=== PATIENT | female | born 1965 | race Caucasian/White ===

== ENCOUNTER 2018-10-09 13:28 | Inpatient (IN) | payer MEDICAID ==
[~2018-10-09] VITALS: Ht 162.6 cm; Wt 111.6 kg
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
[2018-10-09 14:10] LABS: BASOPHIL % 0.9 % (0-2); PLATELET COUNT 196 x10^3mcL (130-400); RED CELL DISTRIBUTION WIDTH 14.4 % (11.5-14.5)
[2018-10-09 14:26] LABS: CALCIUM 8.7 mg/dL (8.5-10.1); CARBON DIOXIDE 23.9 mmol/L (21-32); CHLORIDE SERUM 107 mmol/L (98-107); CREATININE SERUM 0.7 mg/dL (0.6-1.0); GFR1 > 60 mL/min; GLUCOSE SERUM 99 mg/dL (74-106); POTASSIUM SERUM 4.2 mmol/L (3.5-5.1); SODIUM SERUM 140 mmol/L (136-145)
--- NOTE | 2018-10-09 14:30 | NUR ---
PT SITTING UP IN BED WATCHING TV. NO SIGNS OF DISTRESS AT THIS TIME.
[2018-10-09 14:31] LABS: ALKALINE PHOSPHATASE 88 U/L (46-116); ALT/SGPT 24 U/L (14-59); AST/SGOT 9 U/L (15-37); BILIRUBIN TOTAL 0.25 mg/dL (0.20-1.00)
[2018-10-09 14:35] LABS: ALBUMIN 3.2 g/dL (3.4-5.0)
[2018-10-09 14:36] LABS: AMPHETAMINE QUAL UR NONE DETECTED (See below)
--- NOTE | 2018-10-09 15:30 | NUR ---
PT LYING IN BED WITH EYES CLOSED WITH NO SIGNS OF DISTRESS.
--- NOTE | 2018-10-09 16:30 | NUR ---
PT LYING IN BE WATCHING TV WITH NO SIGNS OF DISTRESS AT THIS TIME.
--- NOTE | 2018-10-09 17:34 | NUR ---
PT SITTING UP ON EDGE OF BED EATING DINNER. NO SIGNS OF DISTRESS AT THIS TIME.
--- NOTE | 2018-10-09 19:30 | NUR ---
PT RESTING IN BED AFTER USING RESTROOM.
--- NOTE | 2018-10-09 19:30 | NUR ---
PT SITTING UP ON EDGE OF BED TO WATCH TV. NO SIGNS OF DISTRESS.
--- NOTE | 2018-10-09 20:29 | NUR ---
PT SITTING UP IN BED WATCHING TV AND EATING SNACK.
--- NOTE | 2018-10-09 21:09 | NUR ---
Notified Loree JONES , there are no vacancy at any of the designated facilities , will continue to make calls for placement.
--- NOTE | 2018-10-09 21:25 | NUR ---
PT RESTING IN BED ON HER BACK WITH EYES CLOSED WITH NO SIGNS OF DISTRESS AT THIS TIME.
--- NOTE | 2018-10-09 22:49 | NUR ---
PATIENT TRANSFERED TO ICU BED 5.
--- NOTE | 2018-10-09 22:52 | NUR ---
PT REPORT RECEIEVED FROM KAREN GALO. QUESTIONS AND CONCERNS ADDRESSED. PT RESTING IN BED AT THIS TIME, CALM AND COOPERATIVE. WILL MONITOR CLOSELY.
--- NOTE | 2018-10-09 23:36 | NUR ---
PATIENT SLEEPING IN BED AT THIS TIME, NO S/S OF DISTRESS NOTED. WILL MONITOR CLOSELY.
--- NOTE | 2018-10-10 00:44 | NUR ---
PT ASLEEP AT THIS TIME. WILL MONITOR CLOSELY.
--- NOTE | 2018-10-10 02:03 | NUR ---
CRACKERS, AND PUDDING GIVEN AT THIS TIME. PT IS CALM AND COOPERATIVE.
--- NOTE | 2018-10-10 03:00 | NUR ---
ASLEEP AT THIS TIME NO S/S OF DISTRESS NOTED.
--- NOTE | 2018-10-10 04:22 | NUR ---
PATIENT IS SLEEPING IN BED AT THIS TIME. NO S/S OF DISTRESS.
--- NOTE | 2018-10-10 05:40 | NUR ---
PT GIVEN CHOCOLATE PUDDING, PT IS CALM AND COOPERATIVE AT THIS TIME.
--- NOTE | 2018-10-10 07:09 | NUR ---
RECIEVED REPORT FROM [facility]. I WILL RESUME CARE OF PATIENT.
--- NOTE | 2018-10-10 08:07 | NUR ---
PT AT 100% FOOD TRAY, 120ML. OFFERED NEW GOWN, SOCKS, CHANGED BEDDING, AND GAVE TOILETTRY ITEMS FOR PATIENT TO USE. PT IN DISTRESS, AMBULATED WITH A STEADY GAIT GETTING AROUND HER ROOM, AAOX4. NO SI A THIS TIME. WILL CONT TO MONITOR.
--- NOTE | 2018-10-10 08:07 | NUR ---
PT AT 100% FOOD TRAY, 120ML. OFFERED NEW GOWN, SOCKS, CHANGED BEDDING, AND GAVE TOILETTRY ITEMS FOR PATIENT TO USE. PT IN NO DISTRESS, AMBULATED WITH A STEADY GAIT GETTING AROUND HER ROOM, AAOX4. NO SI A THIS TIME. WILL CONT TO MONITOR.
--- NOTE | 2018-10-10 09:44 | NUR ---
PT SLEEPING IN BED, NO SIGNS OF DISTRESS, RESP E/U. PT IN VIEW OF THE NURSE'S STATION. BED IN LOWEST POSITION, CALL [place] WITHIN REACH, PT ON MONITOR, VSS. WILL CONT TO MONITOR.
--- NOTE | 2018-10-10 11:23 | NUR ---
PT LAYING IN POSITION OF COMFORT, WATCHING TV. PT AMBULATED TO RESTROOM WITH A STEADY GAIT. NO SIGNS OF DISTRESS, RESP E/U, PT IS CALM, COOPERATIVE, NO SI/HI AT THIS TIME. PT IN VIEW OF THE NURSE'S STATION, BED IN LOWEST POSITION, AND CALL [place] WITHING REACH. WILL CONT TO MONITOR.
--- NOTE | 2018-10-10 12:59 | NUR ---
PT LAYING IN POSTION OF COMFORT, WATCHING TV. PT AAOX4, NO SI/HI, NO SIGNS OF DISTRESS, RESP E/U. PT BED IN LOWEST POSITION, IN VIEW OF NURSE'S STATION. WILL CONT TO MONITOR.
--- NOTE | 2018-10-10 13:13 | NUR ---
PT AMBULATED TO RESTROOM WITH A STEADY GAIT. NO SIGNS OF OF DISTRESS, RESP E/U. PT BACK TO ER BED SITTIGN UP AND WATCHING TV. PT IN VIEW OF NURSE'S STATION. WILL CONT TO MONITOR.
[2018-10-10] MEDS ORDERED: LISINOPRIL20 MG PO (14:19)
[2018-10-10] MEDS ORDERED: METFORMIN HCL1000 MG PO (14:19)
--- NOTE | 2018-10-10 14:19 | NUR ---
PT AMBULATED TO AND FROM BATHROOM WITH STEADY GAIT. NO DISTRESS. PT BACK ON [facility]. CONTINUE TO MONITOR.
[2018-10-10] MEDS ORDERED: TRULICITY0.75 MG/0. SC (14:21)
[2018-10-10] MEDS ORDERED: GOOD SENSE OMEP20 MG PO (14:22)
[2018-10-10] MEDS ORDERED: GABAPENTIN600 M1 PO (14:22)
[2018-10-10] MEDS ORDERED: NAPROXEN SODIU550 MG PO (14:23)
[2018-10-10] MEDS ORDERED: NOR10T PO (14:24)
[2018-10-10 14:52] LABS: CHOLESTEROL/HDL RATIO 3.8; MAGNESIUM 2.2 mg/dL (1.8-2.4); PHOSPHOROUS 4.6 mg/dL (2.5-4.9)
[2018-10-10] MEDS ORDERED: RISPERIDONE2 M1 PO (15:02)
--- NOTE | 2018-10-10 15:23 | NUR ---
PT WAS GIVEN A TUNA SANDWHICH, JELLO, AND MILK. PT ATE 100% AND 240ML. PT IS AAOX4, CALM, COOPERATIVE, NO SIGNS OF DISTRESS, NO SI/HI, RESP E/U. PT SITTING UP IN BED WATHIGN TELEVISION. WILL CONT TO MONITOR.
--- NOTE | 2018-10-10 17:10 | NUR ---
MEDICATED PT PER MD ORDERS, SEE EMAR. PT GIVEN DINNER TRAY. PT IS AAOX4, DENIES SI/HI, PT CALM AND COOPERATIVE. PT IS SITTING IN VIEW IF NURSE'S STATION. PT IS SITTING UP ON EDGE OF BED EATING. WILL CONT TO MONITOR.
--- NOTE | 2018-10-10 17:45 | NUR ---
PT ATE 100% AND 240ML OF DINNER. PT IS AAOX4, NO SI/HI, CALM AND COOPERATIVE. PT IN POSITION OF COMFORT WATCHING TV.
--- NOTE | 2018-10-10 19:00 | NUR ---
GAVE REPORT [facility] WHO WILL RESUME FURTHER CARE OF THE PATIENT.
--- NOTE | 2018-10-10 19:10 | NUR ---
RECEIVED PT FROM ER. PT ADMIT FOR 5150 SUICIDAL IDEA, PT IS A/O X4, VERBAL RESPONSIVE, ABLE TO TELL WHAT SHE NEEDS. LUNG SOUND CLEAR BILATERAL, NO COUGH, NO SOB, PT DENY ANY CHEST PAIN OR DISCOMFORT, BOWEL SOUND PRESENT ALL 4 QUADRANTS, NO DISTENTION, NO TENDER. PEDAL PULSE PRESENT BOTH FEET, NO EDEMA, NO IV ACCESS, PT DENY ANY SUCIDAL IDEA AT THIS MOMENT. ALL ADLS ASSIST, ALL NEED MET, SITTER AT BEDSIDE, WILL CONTINUE TO MONITOR THE PT.
[2018-10-10 19:37] VITALS: BP 102/60
[2018-10-10 21:23] VITALS: BP 126/63
--- NOTE | 2018-10-11 05:08 | NUR ---
PT IS SLEEPING, AWAKE BY TOUCH, DENY ANY RESPIRATORY DISTRESS, DENY ANY PAIN OR DISCOMFORT, ALL ADLS ASSIST, ALL NEED MET, CALL LIGHT IN REACH, WILL CONTINUE TO MONITOR.
--- NOTE | 2018-10-11 06:18 | NUR ---
Still no beds avqailable for placement, will endorsed to AM shift to continue to make calls for placement.
[2018-10-11 06:40] LABS: microscopic required? NO
[2018-10-11 07:07] LABS: UA SPECIFIC GRAVITY <=1.005 (1.005-1.035); urine erythrocyte NEGATIVE (NEGATIVE)
--- NOTE | 2018-10-11 07:30 | NUR ---
RECEIVED PATIENT IN BED AWAKE ALERT AND WITH A 1-1 SITTER FOR SAFETY. NO TELE OR IV ACCESS. RESP EVEN AND UNLABORED LUNGS CLEAR ON ROOM AIR. AMBULATES AD NIYA TO THE BATHROOM. SKIN INTACT. DENIES ANY SUICIDAL IDEATION. REQUESTS FOOD FREQUENTLY, REMINDED PATIENT THAT SHE IS ON A [facility] DIET. WILL CONTINUE TO MONITOR.
[2018-10-11 08:47] VITALS: BP 105/57
--- NOTE | 2018-10-11 14:44 | NUR ---
PATIENT HAS BEEN CALM AND COOPERATIVE. REQUESTS FOOD FREQUENTLY. NO CHANGE IN CONDITIION NOTED. WILL CONTINUE TO MONITOR.
--- NOTE | 2018-10-11 18:43 | NUR ---
NO CHANGE IN CONDITON NOTED. 1-1 SITTER AT BEDSIDE. WILL ENDORSE TO NOC NURSE.
[2018-10-11 18:44] VITALS: BP 130/77
--- NOTE | 2018-10-11 19:32 | NUR ---
RECEIVED PT FROM PREVIOUS SHIFT. PT A/OX4. DENIES PAIN. DENIES SOB ON RA. NO IV ACCESS, DR ROE. SITTER AT BEDSIDE. PT IN NO ACUTE DISTRESS. CALL LIGHT WITHIN REACH, BED IN LOW POSITION. WILL CONTINUE TO MONITOR.
--- NOTE | 2018-10-11 19:59 | NUR ---
Follow up calls were to the following contracted psych facilities for bed placement. [facility], spoke with Jaime. No beds available tonight. [facility], spoke with Stephanie. No beds available tonight. [facility], spoke with Tracy. No beds available tonight. [facility], spoke with Roman. No beds available tonight. [facility], no answer. Left message. [facility] in [facility]. No beds available at this time [facility], spoke with Lindsey. They are full, no beds. [facility], spoke with Jamari. No beds available for tonight. [facility], no answer. Left message. [facility], spoke with Keegan. No beds available at this time. Call Center will call the unit when new information is received.
[2018-10-11 21:05] VITALS: BP 111/54
--- NOTE | 2018-10-12 02:24 | NUR ---
PT RESTING IN NO ACUTE DISTRESS. RR EVEN AND UNLABORED. CALL LIGHT WITHIN REACH, BED IN LOW POSITION. WILL CONTINUE TO MONITOR.
[2018-10-12 05:40] VITALS: BP 121/53
--- NOTE | 2018-10-12 05:53 | NUR ---
NO ACUTE CHANGES THROUGHOUT SHIFT. PT RESTING IN NO DISTRESS. RR EVEN AND UNLABORED. WILL ENDORSE CARE TO ONCOMING SHIFT
--- NOTE | 2018-10-12 07:20 | NUR ---
SEEN IN BED AAOX4. DENIES PAIN. BREATHING E/U ON ROOM AIR. REFUSED IV CATHETER ACCESS. STATED AMBULATE WITH STEADY GAIT. SITTER 1:1 AT BEDSIDE FOR 5150 HOLD. CALL LIGHT NOTED PLACED WITHIN EASY REACH. SIDERAILS UP X2.
[2018-10-12 09:06] VITALS: BP 129/70
--- NOTE | 2018-10-12 09:30 | NUR ---
GOOD APPETITE, HOT TEA PROVIDED PER REQUESTED. AM SCHEDULED MEDS GIVEN.
--- NOTE | 2018-10-12 16:25 | NUR ---
SEEN BY DOCTOR KHUSHBU. PER DOCTOR KHUSHBU PATIENT IS PSYCHOLOGICALLY CLEARED TO DISCHARGE HOME.
[2018-10-12 16:35] VITALS: BP 129/70
--- NOTE | 2018-10-12 17:13 | NUR ---
ATTEMPTED TO PAGE DOCTOR REED.
--- NOTE | 2018-10-12 17:28 | NUR ---
DOCTOR REED MADE AWARE OF PATIENT IS PSYCHIATRICALLY CLEARED TO DISCHARGE.
[2018-10-12 18:03] VITALS: BP 105/73
--- NOTE | 2018-10-12 20:33 | NUR ---
PT ALERT AND ORIENTED. RESP. EVEN AND UNLABORED. NO ACUTE DISTRESS NOTED. PT REQUESTING TO LEAVE AGAINST MEDICAL ADVICE. . PT REFUSED TO WAIT TO SPEAK WITH MD , DEMANDING TO SIGN AMA FORM. CHARGE NURSE AWARE.PT,S MOTHER AWARE. PT SIGNED AMA FORM AND LEFT THE FLOOR WITH PERSONAL BELONGINGS.DR CHAO NOTIFIED.
[2018-10-13 15:21] VITALS: Ht 162.6 cm; Wt 111.6 kg
== END 2018-10-12 20:00 | disposition left against medical advice (07) | DRG 753 ==
LOC: ED 13:28 → MU 10-10 13:47
PROVIDERS: Emergency Medicine; ADMIT Internal Medicine
DX: F31.9 Bipolar disorder, unspecified (principal); D68.69 Other thrombophilia; E44.1 Mild protein-calorie malnutrition; E11.9 Type 2 diabetes mellitus without complications; Z91.128 Patient's intentional underdosing of medication regimen for other reason; I16.0 Hypertensive urgency; F63.1 Pyromania; T42.6X6A Underdosing of other antiepileptic and sedative-hypnotic drugs, initial encounter; F43.10 Post-traumatic stress disorder, unspecified; M54.9 Dorsalgia, unspecified; G89.29 Other chronic pain; Z68.34 Body mass index [BMI] 34.0-34.9, adult; Z79.84 Long term (current) use of oral hypoglycemic drugs; Y92.009 Unspecified place in unspecified non-institutional (private) residence as the place of occurrence of the external cause
CPT/HCPCS: 82962; G0480; Q0092